=== PATIENT | male | born 1995 | race Two or more races ===

== ENCOUNTER 2024-10-13 15:42 | Emergency (ER) | payer MEDICAID, OTHER ==
[~2024-10-13] VITALS: Ht 188 cm; Wt 174.3 kg
[2024-10-13 15:46] VITALS: BP 133/95; PULSE 83; RESP 16; TEMP 98.7; O2SAT 96
[2024-10-13] MEDS: HYDROcodone-ACET 10/325MG TAB PO ONE (16:35)
--- NOTE | 2024-10-13 16:41 | ED.PDOC ---
General HPI Comments 29 year old male presents to the ED with a chief complaint of testicle pain onset today (10/13/24) around 13:40. Patient states he was taking a shower, noticed mild LT testicle swelling, began experiencing LT testicle pain. He has experienced similar pain in the past, is able to "self adjust" but has never been seen for symptoms. Denies any PMHx as well as dysuria, hematuria, discharge, fever, chills, trauma, injury, nausea, vomiting. No other symptoms or modifying factors present at this time. Chief Complaint: Testicle Pain Time Seen by MD: 16:30 Reviewed notes: Medications, Allergies Allergies: Coded Allergies: Penicillins (Verified Allergy, Severe, 10/13/24) Information Source: Patient Mode of Arrival: Ambulatory Severity: Moderate Timing: Hours Duration: Since onset Prehospital treatment: None Onset: Spontaneous Symptoms: None History of: None Location male: L Scrotum Penile discharge: None Modifying factors: None associated signs and symptoms: Other Past Medical History PAST MEDICAL HISTORY: Denies Surgical History: Denies all surgeries Family History Family History: Reviewed,noncontributory to illness, No family hx of Cancer, No family hx of DM, No family hx of Heart keyla, No family hx of HTN, No family hx ofKidney keyla, No family hx of Liver keyla, No family hx of Lung keyla, No family hx of Stroke Social History Smoker: Non-Smoker Alcohol: Denies ETOH Use Drugs: Denies Drug Use Lives In: Home Constitutional: denies: chills, diaphoresis, fatigue, fever, malaise, sweats, weakness, others EENTM: denies: blurred vision, double vision, ear bleeding, ear discharge, ear drainage, ear pain, ear ringing, eye pain, eye redness, hearing loss, mouth pain, mouth swelling, nasal discharge, nose bleeding, nose congestion, nose pain, photophobia, tearing, throat pain, throat swelling, voice changes, others Respiratory: denies: cough, hemoptysis, orthopnea, SOB at rest, shortness of breath, SOB with excertion, stridor, wheezing, others Cardiovascular: denies: chest pain, dizzy spells, diaphoresis, Dyspnea on exertion, edema, irregular heart beat, left arm pain, lightheadedness, palpitations, PND, syncope, others Gastrointestinal: denies: abdomen distended, abdominal pain, blood streaked bowels, constipated, diarrhea, dysphagia, difficulty swallowing, hematemesis, melena, nausea, poor appetite, poor fluid intake, rectal bleeding, rectal pain, vomiting, others Genitourinary: reports: testicle pain, testicle swelling; denies: burning, dysuria, flank pain, frequency, hematuria, incontinence, penile discharge, penile sore, pain, urgency, others Neurological: denies: dizziness, fainting, headache, left sided numbness, left sided weakness, numbness, paresthesia, pre-existing deficit, right sided numbness, right sided weakness, seizure, speech problems, tingling, tremors, weakness, others Musculoskeletal: denies: back pain, gout, joint pain, joint swelling, muscle pain, muscle stiffness, neck pain, others Integumetry: denies: bruises, change in color, change in hair/nails, dryness, laceration, lesions, lumps, rash, wounds, others Allergic/Immunocompromised: denies: Difficulty Healing, Frequent Infections, Hives, Itching, others Hematologic/Lymphatic: denies: anemia, blood clots, easy bleeding, easy bruising, swollen glands, others Endocrine: denies: excessive hunger, excessive sweating, excessive thirst, excessive urination, flushing, intolerance to cold, intolerance to heat, unexplained weight gain, unexplained weight loss, others Psychiatric: denies: anxiety, bipolar disorder, depression, hopeless, panic disorder, schizophrenia, sleepless, suicidal, others All Other Systems: Reviewed and Negative Physical Exam General Appearance: Moderate Distress, Normal HEENT: Normal ENT Inspection, Pharynx Normal, TMs Normal Neck: Full Range of Motion, Non-Tender, Normal, Normal Inspection Respiratory: Chest Non-Tender, Lungs Clear, No Accessory Muscle Use, No Respiratory Distress, Normal Breath Sounds Cardiovascular: No Edema, No JVD, No Murmur, No Gallop, Normal Peripheral Pulses, Regular Rate/Rhythm Breast Exam: Deferred Gastrointestinal: No Organomegaly, Non Tender, No Pulsatile Mass, Normal Bowel Sounds, Soft Genitalia: Testicle Pelvic: Deferred Rectal: Deferred Extremities: No calf tenderness, Normal capillary refill, Normal inspection, No rmal range of motion, Non-tender, No pedal edema Musculoskeletal : Apperance: Normal Neurologic: Alert, tunnel man II-XII nml as Tested, No Motor Deficits, Normal Affect, Normal Mood, No Sensory Deficits Cerebellar Function: Normal Reflexes: Normal Skin: Dry, Normal Color, Warm Peripheral Pulses: 3+ Radial (R), 3+ Radial (L) Lymphatic: No Adenopathy Was a procedure done? Was a procedure done?: No Differential Diagnosis Kidney stone (Female): Musculoskeletal pain, Urinary obstruction, Urolithiasis X-Ray, Labs, Meds, VS Vital Signs Date Time Temp Pulse Resp B/P (MAP) Pulse Ox O2 Delivery O2 Flow Rate FiO2 10/13/24 15:46 98.7 83 16 133/95 96 98.7 Current Medications Medications (Trade) Dose Ordered Sig/Margaret Route Start Time Stop Time Status Last Admin Acetaminophen/ Hydrocodone Bitart ([place] 10/325MG Tab) 1 tab ONCE ONCE PO 10/13/24 16:30 10/13/24 16:31 DC 10/13/24 16:35 Patient alert. Vitals stable. Complaining of testicular pain. Answering questions. Ambulating. Was given pain medication. Abdomen is soft nontender. Ultrasound reviewed does not show any acute changes. Explained to the patient. Was told to follow up with his primary care physician. Was told to come back if there is any problem. Time of 1ST Reevaluation: 17:00 Reevaluation 1ST: Unchanged Patient Education/Counseling: Diagnosis, Treatment, Prognosis Family Education/Counseling: No Family Present SEPSIS Sepsis Screen Date sepsis recognized/suspect: Oct 13, 2024 Time Sepsis recognized/suspect: 8 Recent Procedure: No On Antibiotic Therapy: No Respiratory Rate >20: No Heart Rate >90: No Temp<36 C (96.8 F) or >38.3 C: No SBP <90 or MAP <65 mmHG: No New Acute Mental Status Change: No Is the patient on CPAP, BIPAP,: No Physician Orders Testicular Ultrasound (10/13/24 16:28) Vital Signs Date Time Temp Pulse Resp B/P (MAP) Pulse Ox O2 Delivery O2 Flow Rate FiO2 10/13/24 15:46 98.7 83 16 133/95 96 98.7 Medications Medications Dose Ordered Sig/Margaret Route Start Time Stop Time Status Last Admin Dose Admin Acetaminophen/ Hydrocodone Bitart 1 tab ONCE ONCE PO 10/13/24 16:30 10/13/24 16:31 DC 10/13/24 16:35 Departure 1 Departure Time of Disposition: 16:43 Impression: Primary Impression: Inguinal strain Qualified Codes: S76.212A - Strain of adductor muscle, fascia and tendon of left thigh, initial encounter Disposition: HOME / SELF CARE / HOMELESS Condition: Good e-Prescriptions Ibuprofen Micronized (MOTRIN TABLET) 600 Mg Tb 600 MG PO TID PRN for 3 Days, #9 TAB *Black box warning-NSAIDS can increase risk of VT & hypertension, GI irritation, ulceration, bleed, perferation. Do not use post cardiac surgery. Use short duration/lowest effective dose. Prov: ANG DRAPER MD 10/13/24 Discharged With: Self Critical Care Note Critical Care Time?: No Stability Stability form required: No Heart Score Heart Score: Heart Score Response (Comments) Value History N/A 0 EKG N/A 0 Age N/A 0 Risk Factors N/A 0 Troponin N/A 0 Total 0 I personally scribed for ANG DRAPER MD ([email or web address]) on 10/13/24 at 16:41. Electronically submitted by Ju Millan ([email or web address]). ANG DRAPER MD Oct 13, 2024 16:41
--- NOTE | 2024-10-13 17:20 | DVH ---
SCROTAL ULTRASOUND REASON FOR EXAM: torsion. Pain. COMPARISON: None TECHNIQUE: Real-time sector scans and duplex color flow Doppler imaging of the scrotal contents was performed. FINDINGS: The right testicle measures 4.0 x 2.5 x 2.8 cm. The left testicle measures 3.7 x 2.1 x 2.8 cm. No testicular mass is identified. Flow was seen within the right and left testicle. There is no hypere janine. There is no evidence of hydrocele nor varicocele identified. The epididymides are of normal size, sh ape and contour. IMPRESSION: Normal appearance of the testes and epididymides.
[2024-10-13] MEDS ORDERED: IBU600T PO (17:27)
== END 2024-10-13 17:32 | disposition home or self-care (01) ==
LOC: ER 15:42
DX: S39.011A Strain of muscle, fascia and tendon of abdomen, initial encounter (principal); Z88.0 Allergy status to penicillin; X58.XXXA Exposure to other specified factors, initial encounter; Y93.89 Activity, other specified; Y92.89 Other specified places as the place of occurrence of the external cause; Y99.8 Other external cause status
CPT/HCPCS: 76870